=== PATIENT | female | born 2000 | race Caucasian/White ===

== ENCOUNTER 2022-11-26 13:51 | Inpatient (IN) | payer OTHER ==
[2022-11-26] MEDS ORDERED: Acetaminophen/Codeine 30-300mg Tablet PO PRN (14:09)
[2022-11-26] MEDS ORDERED: Ibuprofen 800 MG TAB PO PRN (14:09)
[2022-11-26] MEDS ORDERED: Lidocaine 1% (PF) 30 ML VIAL SC PRN (14:09)
[2022-11-26] MEDS ORDERED: HYDROcodone/Acetaminophen 5/325 mg Tablet PO PRN (14:09)
[2022-11-26] MEDS ORDERED: NS w/ Oxytocin 30 units 500 ML IV SCH ×2 (14:15)
[2022-11-26] MEDS ORDERED: Lactated Ringer's 1,000 ML IV SCH (14:15)
[2022-11-26 14:39] VITALS: BMI 24.1
[2022-11-26 14:53] LABS: Hemoglobin 9.8 g/dL (12.0-15.5); Mean Corpuscular Hemoglobin 23.1 pg (27.0-33.0); Mean Corpuscular Volume 76.9 fl (81.6-98.3); Platelet Count 225 10x3/uL (150-450); RBC Distribution Width 20.2 % (11.5-14.5); Red Blood Cell (RBC) Count 4.25 10x6/uL (3.90-5.03); White Blood Cell (WBC) Count 17.4 10x3/uL (3.5-10.5)
[2022-11-26 15:09] LABS: ALT (SGPT) 6 U/L (8-55); AST (SGOT) 16 U/L (5-34); Albumin 3.6 g/dL (3.5-5.0); Alkaline Phosphatase 205 U/L (40-110); Anion Gap 15 mmol/L (10-20); BUN (Urea Nitrogen) 11 mg/dL (7.0-18.7); Bilirubin, Total 0.3 mg/dL (0.2-1.2); Calc. Creatinine Clearance 165 mL/min (70-130); Calcium 8.5 mg/dL (7.8-10.44); Carbon Dioxide 17 mmol/L (22-29); Chloride 106 mmol/L (98-107); Estimated GFR 130; Globulin 3.1 g/dL (2.4-3.5); Glucose 75 mg/dL (70-105); Potassium 4.1 mmol/L (3.5-5.1); Protein, Total 6.7 g/dL (6.0-8.3); Sodium 134 mmol/L (136-145)
[2022-11-26] MEDS ORDERED: Benzocaine-Menthol 82.5 ML CAN TOP PRN (15:16)
[2022-11-26] MEDS ORDERED: Acetaminophen 325 MG TAB PO PRN (15:16)
[2022-11-26] MEDS ORDERED: hydrALAZINE 20 MG/ML VIAL SLOW IVP PRN (15:16)
[2022-11-26] MEDS ORDERED: Boostrix 0.5 ML (Tdap) VIAL (>/=7 yrs of age) IM ONE (15:16)
[2022-11-26] MEDS ORDERED: Preparation H Ointment 28 GM TUBE PR PRN (15:16)
[2022-11-26] MEDS ORDERED: Bisacodyl 10 MG SUPP PR PRN (15:16)
[2022-11-26] MEDS ORDERED: Measles/Mumps/Rubella 10 MCG/0.5 ML VIAL SC ONE (15:16)
[2022-11-26] MEDS ORDERED: Lanolin Ointment 7 GM TUBE TOP PRN (15:16)
[2022-11-26] MEDS ORDERED: Milk Of Magnesia 30 ML UDCUP PO PRN (15:16)
[2022-11-26] MEDS ORDERED: Varicella virus, LIVE 0.5 ML VIAL SC ONE (15:16)
[2022-11-26 15:28] LABS: Syphilis Antibody Nonreactive (Nonreactive); Syphilis Antibody Index 0.03 S/CO (<1.00 Non-Reactive)
[2022-11-26 15:30] LABS: HBSAg Index 0.12 S/CO (0-0.99); Hep B Surf Ag - L&D Non-Reactive S/CO (NonReactive)
[2022-11-26 16:46] LABS: HIV (1/2) Antibody/Antigen Non-Reactive (NonReactive); HIV 1/2 INDEX 0.14 S/CO (<1.00)
[2022-11-26 17:29] LABS: Amphetamine Not Detected (NotDetected); Barbiturates Screen Not Detected (NotDetected); Benzodiazepine Screen Not Detected (NotDetected); Cocaine Metabolite Screen Not Detected (NotDetected); Methadone Not Detected (NotDetected); Methamphetamine Not Detected (NotDetected); Opiate Screen Not Detected (NotDetected); Oxycodone Screen Not Detected (NotDetected); Phencyclidine (PCP) Not Detected (NotDetected); THC/Cannabinoid Screen Not Detected (NotDetected); Tricyclic Screen Not Detected (NotDetected)
[2022-11-26] MEDS: Ibuprofen 800 MG TAB PO SCH (17:29)
[2022-11-26] MEDS: Ferrous Sulfate 325 MG TAB PO SCH (19:21)
[2022-11-26] MEDS: Docusate 100 MG CAP PO SCH (21:51)
[2022-11-27] MEDS: Ibuprofen 800 MG TAB PO SCH ×3 (06:13→21:37)
[2022-11-27 08:10] LABS: Hemoglobin 8.9 g/dL (12.0-15.5)
[2022-11-27] MEDS: Ferrous Sulfate 325 MG TAB PO SCH ×2 (08:23→17:24)
[2022-11-27] MEDS: Prenatal Vitamin 1 TAB PO SCH (08:23)
[2022-11-27] MEDS: Docusate 100 MG CAP PO SCH ×2 (08:23→21:37)
[2022-11-27 13:30] LABS: HBSAB Concentration Less than 8.00 mIU/mL; Hep B Surf AB Non-Reactive (NonReactive)
[2022-11-28] MEDS: Ibuprofen 800 MG TAB PO SCH (05:50)
[2022-11-28 07:50] VITALS: BP 127/58; TEMP 98.3
[2022-11-28] MEDS: Prenatal Vitamin 1 TAB PO SCH (08:12)
[2022-11-28] MEDS: Docusate 100 MG CAP PO SCH (08:12)
[2022-11-28] MEDS: Ferrous Sulfate 325 MG TAB PO SCH (08:12)
== END 2022-11-28 13:10 | disposition home or self-care (01) | DRG 807 ==
LOC: CSHLD/OP 13:51 → CSHLD 13:52 → CSHPP 17:40
PROVIDERS: ADMIT Obstetrics & Gynecology; ATTEND Obstetrics & Gynecology
PROC: 10E0XZZ Delivery of Products of Conception, External Approach (ICD-10-PCS; principal; 2022-11-26)
DX: O99.02 Anemia complicating childbirth (principal); Z37.0 Single live birth; Z3A.40 40 weeks gestation of pregnancy; D64.9 Anemia, unspecified
CPT/HCPCS: 36415; 80306; 85014; 85018; 86706; 86762; 86780; 86850; 86900; 86901; 87340; 87389; 99285; J2590